=== PATIENT | male | born 1970 | race Caucasian/White ===

== ENCOUNTER 2019-05-06 15:01 | Inpatient (IN) | payer BC ==
[~2019-05-06] VITALS: Ht 182.9 cm; Wt 107.2 kg
[~2019-05-06 15:01] MED LIST: CARA1TAB2 PO; CLAR10TA13 PO; GI COCKTAIL PO; PANT40TA2 PO; PERC7.5T12 PO
[2019-05-06] MEDS ORDERED: ATIV1TAB10 PO (15:21)
[2019-05-06 15:52] LABS: HEMATOCRIT 44.1 % (42.0-52.0); HEMOGLOBIN 15.2 g/dl (13.5-17.5); MEAN CORPUSCULAR HEMOGLOBIN 31.6 pg (27.0-33.0); MEAN CORPUSCULAR HGB CONC 34.5 g/dl (32.0-36.5); MEAN CORPUSCULAR VOLUME 91.7 fl (80.0-96.0); PLATELET COUNT, AUTOMATED 130 10^3/uL (150-450); RED BLOOD COUNT 4.81 10^6/uL (4.30-6.10); WHITE BLOOD COUNT 4.7 10^3/uL (4.0-10.0)
[2019-05-06 16:09] LABS: ATYPICAL LYMPH 1 % (0-5); LYMPHOCYTES 15 % (16-44); METAMYELOCYTES 2 % (0-0); MONOCYTES 1 % (0-5); NEUTROPHILS 67 % (28-66)
[2019-05-06 16:10] LABS: TOXIC VACUOLATION 1+
--- NOTE | 2019-05-06 16:10 | REP ---
Clinical: Chest pain. Comparison: 06/30/2015. Findings: Diffuse bilateral infiltrates (left greater than right) appreciated. Multiple areas have a somewhat rounded nodular mass like appearance. No effusion. No pneumothorax. Cardiac silhouette is normal. Skeletal structures are intact. Impression: Diffuse bilateral infiltrates. Differential diagnosis includes multifocal pneumonia, but underlying mass lesions/metastatic disease cannot be excluded. Consider follow-up to resolution and/or chest CT if necessary. Electronically Signed by Antoine Haile MD 05/06/2019 04:01 P
[2019-05-06 16:11] LABS: PLATELET CLUMPS SMALL AMT; PLATELET ESTIMATE DECREASED (NORMAL)
[2019-05-06 16:30] LABS: ALBUMIN 3.1 GM/DL (3.2-5.2); ALT/SGPT 70 U/L (12-78); BILIRUBIN,DIRECT 0.4 MG/DL (0.0-0.2); BILIRUBIN,TOTAL 0.9 MG/DL (0.2-1.0); BLOOD UREA NITROGEN 11 MG/DL (7-18); CALCIUM LEVEL 8.2 MG/DL (8.5-10.1); CARBON DIOXIDE LEVEL 27 MEQ/L (21-32); CHLORIDE LEVEL 101 MEQ/L (98-107); CK-MB VALUE MASS < 1.0 NG/ML (<3.6); CPK CREATINE PHOSPHOKINASE 81 U/L (39-308); CREATININE FOR GFR 0.86 MG/DL (0.70-1.30); GLOMERULAR FILTRATION RATE > 60.0 (>60); GLUCOSE, FASTING 124 MG/DL (70-100); LIPASE 54 U/L (73-393); MB/CK RELATIVE INDEX 1.23 (< OR =4); NT-PRO BNP 52 PG/ML (<125); SODIUM LEVEL 137 MEQ/L (136-145); THYROID STIMULATING HORMONE 0.602 uIU/ML (0.358-3.740); TOTAL PROTEIN 6.1 GM/DL (6.4-8.2); TROPONIN I < 0.02 NG/ML (< 0.10)
[2019-05-06] MEDS ORDERED: ISOVUE-370 76% 100ML VIAL (Q9967) As Ordered ONE (17:28)
[2019-05-06] MEDS ORDERED: NS 1,000 ML IV ONE ×3 (17:30→20:30)
[2019-05-06] MEDS ORDERED: LevoFLOXacin IV 750 MG in IV 1 EA IV ONE (18:00)
--- NOTE | 2019-05-06 18:01 | REPVR ---
PROCEDURE INFORMATION: Exam: CT Angiography Chest With Contrast Exam date and time: 05/06/2019 5:29 PM Clinical history: 48 years old, male; Shortness of breath TECHNIQUE: Imaging protocol: Computed tomographic angiography of the chest with intravenous contrast. 3D rendering: MIP reconstructed images were created and reviewed. Radiation optimization: All CT scans at this facility use at least one of these dose optimization techniques: automated exposure control; mA and/or kV adjustment per patient size (includes targeted exams where dose is matched to clinical indication); or iterative reconstruction. Contrast material: ISOVUE 370; Contrast volume: 75 ml; Contrast route: IV; COMPARISON: CR PORTABLE CHEST X-RAY 05/06/2019 3:35 PM FINDINGS: Pulmonary arteries: There are no pulmonary emboli. Aorta: There is no aortic dissection or aneurysm. Lungs: Bilateral air space infiltrates demonstrated in the upper and lower lobes. Small calcified granuloma right upper lobe. Pleural space: Minimal left pleural effusion. Heart: Unremarkable. No cardiomegaly. No pericardial effusion. Mediastinum: Diffuse thickening of the wall of the distal esophagus may represent changes secondary to reflux esophagitis. Stomach and bowel: This patient is status post gastric bypass surgery. Lymph nodes: Unremarkable. No enlarged lymph nodes. Bones/joints: Unremarkable. No acute fracture. Soft tissues: Unremarkable. IMPRESSION: 1. Bilateral air space infiltrates demonstrated in the upper and lower lobes. Differential diagnosis includes infection and ARDS. 2. This patient is status post gastric bypass surgery. 3. Minimal left pleural effusion. 4. There is no aortic dissection or aneurysm. 5. There are no pulmonary emboli. Electronically signed by: Go Rees On 05/06/2019 18:00:36 PM
[2019-05-06] MEDS ORDERED: METH1CAP3 PO (18:13)
[2019-05-06] MEDS ORDERED: VITA200021 PO (18:13)
[2019-05-06] MEDS ORDERED: PSEU30TA85 PO (18:13)
[2019-05-06] MEDS ORDERED: LAMO100T PO (18:13)
[2019-05-06] MEDS ORDERED: GUAI400T9 PO (18:13)
[2019-05-06] MEDS ORDERED: REME15TA PO (18:13)
[2019-05-06] MEDS ORDERED: BENZ200C70 PO (18:13)
[2019-05-06] MEDS ORDERED: DULO1CAP6 PO (18:13)
[2019-05-06] MEDS ORDERED: OSEL75CA PO (18:13)
[2019-05-06] MEDS ORDERED: VITMTA PO (18:13)
[2019-05-06] MEDS ORDERED: cefTRIAXone SOD 2 GM in D5W MINI-BAG PLUS 50 ML IV ONE (19:45)
[2019-05-06] MEDS ORDERED: LEVALBUTEROL 1.25 MG/0.5 ML CONCENTRATE NEB INH PRN (20:15)
[2019-05-06] MEDS ORDERED: ENOXAPARIN 40 MG/0.4 ML SYRINGE (J1650) SC ONE (20:30)
[2019-05-06] MEDS ORDERED: BENZONATATE 100 MG CAP PO PRN (20:30)
[2019-05-06] MEDS ORDERED: guaiFENesin 200 MG TAB PO PRN (20:30)
[2019-05-06] MEDS ORDERED: LORazepam 0.5 MG TAB PO PRN (20:30)
[2019-05-06 20:56] LABS: HEMOGLOBIN A1c 5.5 %
[2019-05-06] MEDS ORDERED: DOXYCYCLINE HYCLATE 100 MG in D5W MINI-BAG PLUS 100 ML IV SCH (21:00)
[2019-05-06] MEDS ORDERED: ONDANSETRON 4MG/2ML VIAL (J2405) IV ONE (21:15)
[2019-05-06 21:30] VITALS: BP 158/88
[2019-05-06 21:44] LABS: ABG BASE EXCESS 0.7 (-2.0-2.0); ABG HCO3 24.5 MEQ/L (22.0-26.0); ABG O2 SATURATION 94.7 % (95.0-99.0); ABG PARTIAL PRESSURE CO2 36.5 mmHg (35.0-45.0); ABG PARTIAL PRESSURE O2 67.9 mmHg (75.0-100.0); ABG TOTAL CO2 25.6 MEQ/L (22.0-29.0); ABG pH (ARTERIAL) 7.444 UNITS (7.350-7.450)
[2019-05-06] MEDS ORDERED: ACETAMINOPHEN TAB 650MG DOSE (2X325MG) PO ONE (22:15)
[2019-05-06] MEDS: PANTOPRAZOLE 40MG INJ (PROTONIX) (C9113) IV SCH (22:15)
[2019-05-06] MEDS: MIRTAZAPINE 15 MG TAB PO SCH (22:15)
[2019-05-06] MEDS: NS 1,000 ML IV SCH (23:28)
[2019-05-07] VITALS: BP 140/74
[2019-05-07] MEDS: LEVALBUTEROL 1.25 MG/0.5 ML CONCENTRATE NEB INH SCH ×7 (00:04→23:52)
[2019-05-07] MEDS ORDERED: ACETAMINOPHEN 500 MG TAB PO ONE (02:45)
[2019-05-07] MEDS ORDERED: SODIUM CHLORIDE NASAL 0.65% SPRAY BTL (OCEAN) PRN (02:45)
[2019-05-07 04:00] VITALS: BP 150/80
[2019-05-07 05:23] LABS: HEMATOCRIT 36.7 % (42.0-52.0); MEAN CORPUSCULAR HEMOGLOBIN 31.2 pg (27.0-33.0); MEAN CORPUSCULAR HGB CONC 34.9 g/dl (32.0-36.5); MEAN CORPUSCULAR VOLUME 89.5 fl (80.0-96.0); PLATELET COUNT, AUTOMATED 117 10^3/uL (150-450)
[2019-05-07 05:26] LABS: HEMOGLOBIN 12.8 g/dl (13.5-17.5)
[2019-05-07 05:44] LABS: BLOOD UREA NITROGEN 9 MG/DL (7-18); CALCIUM LEVEL 7.7 MG/DL (8.5-10.1); CARBON DIOXIDE LEVEL 22 MEQ/L (21-32); CHLORIDE LEVEL 106 MEQ/L (98-107); CHOLESTEROL LEVEL 103 MG/DL (<200); CHOLESTEROL RISK RATIO 2.641 (<5); CREATININE FOR GFR 0.63 MG/DL (0.70-1.30); GLOMERULAR FILTRATION RATE > 60.0 (>60); GLUCOSE, FASTING 107 MG/DL (70-100); HDL CHOLESTEROL 39 MG/DL (>40); LDL CHOLESTEROL 42 MG/DL (<100); MAGNESIUM LEVEL 1.4 MG/DL (1.8-2.4); NON-HDL-C 64 MG/DL; POTASSIUM SERUM 3.4 MEQ/L (3.5-5.1); SODIUM LEVEL 137 MEQ/L (136-145); TRIGLYCERIDES LEVEL 111 MG/DL (<150)
[2019-05-07] MEDS: ONDANSETRON 4MG/2ML VIAL (J2405) IV SCH ×5 (05:50→23:50)
--- NOTE | 2019-05-07 07:09 | HPE ---
DATE OF ADMISSION: 05/06/2019 PRIMARY CARE PHYSICIAN: Dr. Espinoza in [place] DIGITAL FIELD SERVICE TECHNICIAN: Opal Davila MD CHIEF COMPLAINT: Shortness of breath, cough, and fever. HISTORY OF PRESENTING ILLNESS: This is a 48-year-old male who presented to the emergency room with acute onset of fever, chills, shortness of breath, and cough productive of yellow-green sputum which started on Wednesday with a temperature of 104.1. On Wednesday, patient was shopping at [employer] with his daughter, did not feel well. Went to urgent care on , where he was diagnosed with the flu and was given Tamiflu. Since then, he has been having a fever which started on Wednesday, 104.1 temperature, with productive cough, yellow-green sputum. Took some Tessalon Perles without improvement, with worsening shortness of breath. Despite Tylenol 1 gram every 6 hours and ibuprofen, which he was not supposed to take due to history of gastric bypass surgery, patient developed headache which was frontal without radiation. No photophobia or neck rigidity. He had some nausea without vomiting. No diarrhea. Nothing helped with his headache. He then started to take hydrocodone which he had from previous surgery which had no improvement as well. 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 He did have one episode of diarrhea today. He has had decrease in appetite without documented weight loss. Denies dysphagia or odynophagia. Otherwise, denies any recent travel. Denies history of asthma, chronic obstructive pulmonary disease (COPD), was never a smoker. He also denies any unusual pets or birds at home. CT chest showed bilateral infiltrates, possible acute respiratory distress syndrome (ARDS). Patient does admit to having exposure to his children who have had upper respiratory infection at home as well as his for the past week, none of whom have been diagnosed with pneumonia or influenza. Hospitalist was called to admit. PAST MEDICAL HISTORY: Esophageal stricture status post dilation, achalasia, seasonal allergies, gastroesophageal reflux disease, anxiety, depression. PAST SURGICAL HISTORY: Gastric bypass, EGD, and per-oral endoscopic myotomy (POEM) at [facility] 2013. ALLERGIES: No known drug allergies. HOME MEDICATIONS: - Tessalon Perles 200 mg three times a day - duloxetine 60 mg daily - guaifenesin 400 three times a day as needed for congestion - lamotrigine 200 mg daily - Ativan 0.5 twice a day as needed for anxiety - Remeron 15 mg nightly - multivitamin one tablet daily - oseltamivir 75 mg twice a day - Sudafed 60 mg every 6 hours as needed for congestion - vitamin D3 2000 units daily - methylphenidate 20 mg twice a day SOCIAL HISTORY: Patient lives at home with his and three children; two daughters and one son. 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 Patient denied any history of smoking. Occasionally drinks alcohol. Avoids carbonated beverages due to his of gastric bypass. Mother age 74 with pancreatic cancer and had a lung mass at the time. Father had coronary artery disease (CAD), still alive at age 75, also with diabetes. Patient has a younger sister with autism. Brother is alive and well and had hip replacement due to football injury. Older sister with fibromyalgia and glaucoma. REVIEW OF SYSTEMS: Per history of present illness (HPI), 12-point system otherwise negative aside from positive findings on history of presenting illness. PHYSICAL EXAMINATION: Temperature 97.2, pulse 121, respiratory rate 16, blood pressure 147/88, 91% on room air. Generally: Patient is awake, alert, oriented times three, answering questions appropriately. Anicteric sclerae. No jaundice. Pupils round and reactive to light and accommodation. Extraocular muscles are intact. Normocephalic, atraumatic. Patient does not have any pallor. No icterus. No jaundice. No use of respiratory accessory muscles. Able to complete his sentences without conversations dyspnea. No tripod positioning or pursing of the lips. Does not appear to be cyanotic. Tongue is midline. Face is symmetric. Trachea is midline. No stridor or neck exam. No drooling. Lungs: Diminished bilateral crackles and decreased breath sounds, faint wheezing. Heart: S1, S2, sinus tachycardia. No murmurs, rubs, or gallops. Abdomen is obese, soft, nontender, nondistended, positive bowel sounds times four quadrants. No hepatosplenomegaly. No abdominal bruits. No costovertebral angle (CVA) tenderness. Extremities: No cyanosis, clubbing, or pitting edema. LABORATORY DATA: White count 4.7, hemoglobin 15, hematocrit 44, platelet count 130, 67% neutrophils, 14 bands, sodium 137, potassium 4, chloride 101, bicarbonate 27, BUN 11, creatinine 0.86, glucose 124, calcium 8.2, total bilirubin 0.9, direct bilirubin 0.4, AST 56, ALT 70, alkaline phosphatase 69, total CK 81, MB fraction less than 1, troponin less than 0.02, BNP 52, total protein 6.1, albumin 3.1, lipase 54, TSH 0.602, d-dimer 3745.02. Microbiology: Mycoplasma pneumonia. Two sets of blood cultures are negative. CT chest 05/06/2019 shows bilateral air space infiltrates demonstrated in the upper and lower lobes. Differential includes infection, ARDS. Status post gastric bypass surgery, minimal left pleural effusion. There is no aortic dissection or aneurysm. There are no pulmonary emboli. ASSESSMENT AND PLAN: This is a 48-year-old male with history of gastric bypass surgery, achalasia, esophageal strictures, seasonal allergies, reflux disease, status post per-oral endoscopic myotomy (POEM) at [facility] in 2013, presents to the emergency room with fever since Wednesday, found to have mycoplasma pneumonia and bilateral infiltrates on CT chest. Patient will be admitted as an inpatient for two midnights for the following issues: 1. Atypical pneumonia with mycoplasma pneumonia, community-acquired. Received IV Levaquin 750 mg in the emergency room (ER) which we will continue. Await sputum culture and continue on ceftriaxone to cover for Streptococcus pneumoniae and Haemophilus influenzae as well. If negative sputum culture, will continue only on Levaquin. Patient is currently not hypoxic, saturating 91% on room air. Will continue to give nebulizer treatments due to some wheezing on examination and monitor for worsening respiratory status. Droplet precautions and isolation precautions. 2. History of gastric bypass surgery, esophageal stricture status post dilation status post per-oral endoscopic myotomy (POEM) at [facility] in 2013. Patient may be resumed on proton pump inhibitor (PPI). 3. Anxiety/depression. Resume home medication. 4. Deep venous thrombosis (DVT) prophylaxis with compression stockings. Early ambulation. MTDD
[2019-05-07 08:00] VITALS: BP 157/74
[2019-05-07] MEDS: PANTOPRAZOLE 40MG INJ (PROTONIX) (C9113) IV SCH ×2 (08:12→20:47)
[2019-05-07] MEDS: MAG SULF 1GM/100ML (MAG RUN) 1 GM in IV 1 EA IV SCH ×2 (08:12→10:22)
[2019-05-07] MEDS: cefTRIAXone SOD 2 GM in D5W MINI-BAG PLUS 50 ML IV SCH (08:12)
[2019-05-07] MEDS: lamoTRIgine 100MG TAB PO SCH (08:13)
[2019-05-07] MEDS: DULoxetine 30 MG CAP (CYMBALTA) PO SCH (08:13)
[2019-05-07] MEDS: SODIUM CHLORIDE 0.9% NASAL GEL 15GM (AYR) SCH ×4 (08:13→20:48)
[2019-05-07] MEDS: MULTIVITAMINS/MINERALS THERAP 1 TAB PO SCH (08:13)
[2019-05-07] MEDS ORDERED: INFLUENZA QUADRIVALENT PF VACCINE 0.5ML SYRINGE (90686) IM ONE (09:00)
--- NOTE | 2019-05-07 09:11 | IPNPDOC ---
Date Seen The patient was seen on 05/07/19. Progress Note SUBJECTIVE: Patient tells me that he continues to have body aches he feels that he did have quite high fever yesterday evening he tells me that his back shoulders and knees are all sore. otherwise patient denies chest pain, shortness breath, nausea, vomiting, fevers, chills OBJECTIVE PHYSICAL EXAMINATION: VITAL SIGNS: Please see below. GENERAL: Pleasant malaise man sitting up in bed awake alert oriented speaking in complete sentences no acute distress does appear fatigued HEENT: Moist mucous membranes no elevation in CVP CARDIOVASCULAR: S1 S2 regular no additional heart sounds appreciated. No audible rub RESPIRATORY: Clear to auscultation bilaterally. Mild diffuse rhonchi with mild expiratory wheeze ABDOMINAL: Bowel sounds present abdomen soft and nontender EXTREMITIES: No clubbing cyanosis or edema NEUROLOGICAL: Spontaneously moves all 4 extremities cranial 2 through 12 grossly intact no gross focal deficits appreciated PSYCHOLOGICAL: Appropriate LABORATORY DATA, MICROBIOLOGY: Please see below. IMAGING STUDIES: CT angiography of the chest:1. Bilateral air space infiltrates demonstrated in the upper and lower lobes. Differential diagnosis includes infection and ARDS. 2. This patient is status post gastric bypass surgery. 3. Minimal left pleural effusion. 4. There is no aortic dissection or aneurysm. 5. There are no pulmonary emboli. ASSESSMENT AND PLAN: This is a 48-year-old man with mycoplasma pneumonia. PROBLEMS: 1 mycoplasma pneumonia: Initially diagnosed with influenza without a positive nasal swab at urgent care and had been on Tamiflu without improvement. He had progressive worsening of his symptoms until he presented to the emergency room he has now been appropriately diagnosed with mycoplasma and is on levofloxacin. I'm unsure of yet benefit ceftriaxone which is currently receiving as well. But as per Dr. Deras's note will continue with her cultures remain negative consider discontinuing within 24 hours. I suspect that within the next 24-48 hours his symptomatology will improving likely medically stable for discharge by Wednesday given resolution of his fevers. His daughter who is 14 months is ill as well currently admitted on her pediatric floor the aware of his diagnosis and she is being treated appropriately for the same condition. The patient did request that I sure of this. Continue with Xopenex Tessalon Perles Robitussin pseudoephedrine. For now continue with normal saline 2 mood disorder: Continue with duloxetine Lamictal Remeron and Ativan. 3 history of gastric bypass surgery: Continue with multivitamin he is on a PPI at this time. 4 anemia: Likely secondary to dilutional drop. 5 thrombocytopenia: Possibly secondary to his infection and dilutional drop continue to monitor daily consider holding anticoagulation platelets below 100 6 electrolytes abnormalities: I'll replete his magnesium IV of potassium by mouth DVT prophylaxis: Lovenox DISPOSITION: I suspect, Wednesday. This note was generated in part or whole with a voice recognition software. Voice recognition is usually quite accurate but often errors do occur. I apologize for any typographical errors that were not detected and corrected. VS, I&O, 24H, Fishbone Vital Signs/I&O Vital Signs Date Time Temp Pulse Resp B/P (MAP) Pulse Ox O2 Delivery O2 Flow Rate FiO2 05/07/19 08:00 99.7 111 18 157/74 (101) 94 Room Air I&O- Last 24 Hours up to 6 AM 05/07/19 06:00 Intake Total 4470 ml Output Total 975 ml Balance 3495 ml Laboratory Data 24H LABS Laboratory Tests 2 05/06/19 15:32: Nucleated Red Blood Cells % (auto) 0.0, Neutrophils 67H, Band Neutrophils 14H, Lymphocytes (Manual) 15L, Monocytes (Manual) 1, Metamyelocytes 2H, Atypical Lymphocytes 1, Toxic Vacuolation 1+, Platelet Estimate DECREASED, Clumped Platelets SMALL AMT, D-Dimer, Quantitative 3745.02H, Anion Gap 9, Glomerular Filtration Rate > 60.0, Estimated Mean Plasma Glucose 111H, Hemoglobin A1c 5.5, Calcium Level 8.2L, Total Bilirubin 0.9, Direct Bilirubin 0.4H, Aspartate Amino Transf (AST/SGOT) 56H, Alanine Aminotransferase (ALT/SGPT) 70, Alkaline Phosphatase 69, Total Creatine Kinase 81, Creatine Kinase MB < 1.0, Creatine Kinase MB Relative Index 1.23, Troponin I < 0.02, [id number]-Type Natriuretic Peptide 52, Total Protein 6.1L, Albumin 3.1L, Albumin/Globulin Ratio 1.03, Lipase 54L, Thyroid Stimulating Hormone (TSH) 0.602 05/06/19 21:31: Blood Gas Bicarbonate Standard 25.0, Arterial Blood pH 7.444, Arterial Blood Partial Pressure CO2 36.5, Arterial Blood Partial Pressure O2 67.9L, Arterial Blood Total CO2 25.6, Arterial Blood HCO3 24.5, Arterial Blood Base Excess 0.7, Arterial Blood Oxygen Saturation 94.7L 05/07/19 05:10: Nucleated Red Blood Cells % (auto) 0.0, Anion Gap 9, Glomerular Filtration Rate > 60.0, Calcium Level 7.7L, Lactic Acid Level 1.2, Magnesium Level 1.4L, Triglycerides Level 111, Total Cholesterol 103, LDL Cholesterol 42, Non-HDL Cholesterol (LDL + VLDL) 64, Total HDL Cholesterol 39L, Cholesterol/HDL Ratio 2.641 CBC/BMP Laboratory Tests 05/06/19 15:32 05/07/19 05:10 Microbiology Microbiology 05/06/19 Blood Culture, Received Pending 05/06/19 Respiratory Virus Panel (PCR) ([facility]) - Final, Complete Mycoplasma Pneumoniae 05/06/19 Blood Culture, Received Pending NICKIE SAUL MD May 07, 2019 09:11
[2019-05-07] MEDS ORDERED: POTASSIUM CHLORIDE 10 MEQ SR TABLET PO ONE (10:00)
[2019-05-07] MEDS: PSEUDOEPHEDRINE 30 MG TAB PO PRN ×2 (10:21→16:06)
[2019-05-07] MEDS: NS 1,000 ML IV SCH (10:22)
[2019-05-07] MEDS: LevoFLOXacin IV 750 MG in IV 1 EA IV SCH (10:23)
--- NOTE | 2019-05-07 11:54 | ECGEPIP ---
[facility] - ED Test Date: 2019-05-06 Pat Name: ANANDA JUNG Department: Room: - Gender: Male Pediatric Assistant: zoe chavez : 1970 Requested By: YMRIAM Castro Order Number: [id number] Reading MD: Loulou Lagos Measurements Intervals [place] Rate: 113 P: 59 GA: 140 QRS: 80 QRSD: 104 T: 32 QT: 306 QTc: 420 Interpretive Statements SINUS TACHYCARDIA POSSIBLE LEFT ATRIAL ENLARGEMENT INCOMPLETE RIGHT BUNDLE BRANCH BLOCK ABNORMAL RHYTHM ECG NO PRIOR Electronically Signed on 05-07-2019 11:54:08 EST by Loulou Lagos
[2019-05-07 12:00] VITALS: BP 159/90
[2019-05-07] MEDS: ACETAMINOPHEN TAB 650MG DOSE (2X325MG) PO PRN (16:06)
[2019-05-07 20:00] VITALS: BP 136/70
[2019-05-07] MEDS: MIRTAZAPINE 15 MG TAB PO SCH (20:47)
[2019-05-07] MEDS: ENOXAPARIN 40 MG/0.4 ML SYRINGE (J1650) SC SCH (20:48)
[2019-05-08] VITALS (8 sets, daily range): BP systolic 126–190; BP diastolic 70–110
[2019-05-08] MEDS: PSEUDOEPHEDRINE 30 MG TAB PO PRN (01:55)
[2019-05-08] MEDS: ACETAMINOPHEN TAB 650MG DOSE (2X325MG) PO PRN ×2 (01:55→23:53)
[2019-05-08] MEDS: LEVALBUTEROL 1.25 MG/0.5 ML CONCENTRATE NEB INH SCH ×5 (04:06→19:33)
[2019-05-08 05:35] LABS: HEMATOCRIT 36.8 % (42.0-52.0); HEMOGLOBIN 12.6 g/dl (13.5-17.5); MEAN CORPUSCULAR HEMOGLOBIN 30.9 pg (27.0-33.0); MEAN CORPUSCULAR HGB CONC 34.2 g/dl (32.0-36.5); MEAN CORPUSCULAR VOLUME 90.2 fl (80.0-96.0); PLATELET COUNT, AUTOMATED 116 10^3/uL (150-450); RED BLOOD COUNT 4.08 10^6/uL (4.30-6.10); WHITE BLOOD COUNT 3.8 10^3/uL (4.0-10.0)
[2019-05-08] MEDS: ONDANSETRON 4MG/2ML VIAL (J2405) IV SCH ×4 (05:43→23:53)
[2019-05-08 05:59] LABS: BLOOD UREA NITROGEN 6 MG/DL (7-18); CALCIUM LEVEL 8.4 MG/DL (8.5-10.1); CARBON DIOXIDE LEVEL 28 MEQ/L (21-32); CHLORIDE LEVEL 104 MEQ/L (98-107); CREATININE FOR GFR 0.66 MG/DL (0.70-1.30); GLOMERULAR FILTRATION RATE > 60.0 (>60); GLUCOSE, FASTING 106 MG/DL (70-100); POTASSIUM SERUM 3.2 MEQ/L (3.5-5.1); SODIUM LEVEL 139 MEQ/L (136-145)
[2019-05-08] MEDS ORDERED: POTASSIUM CHLORIDE 10 MEQ SR TABLET PO ONE ×2 (08:00→13:15)
[2019-05-08] MEDS: PANTOPRAZOLE 40MG INJ (PROTONIX) (C9113) IV SCH ×2 (09:49→20:56)
[2019-05-08] MEDS: cefTRIAXone SOD 2 GM in D5W MINI-BAG PLUS 50 ML IV SCH (09:49)
[2019-05-08] MEDS: lamoTRIgine 100MG TAB PO SCH (09:50)
[2019-05-08] MEDS: MULTIVITAMINS/MINERALS THERAP 1 TAB PO SCH (09:50)
[2019-05-08] MEDS: DULoxetine 30 MG CAP (CYMBALTA) PO SCH (09:51)
[2019-05-08] MEDS: SODIUM CHLORIDE 0.9% NASAL GEL 15GM (AYR) SCH ×4 (09:52→20:57)
[2019-05-08] MEDS: LevoFLOXacin IV 750 MG in IV 1 EA IV SCH (10:43)
--- NOTE | 2019-05-08 13:31 | IPNPDOC ---
Text Note Date of Service The patient was seen on 05/08/19. NOTE SUBJECTIVE: Patient was examined at bedside today. He had no acute complaints. He denies any shortness of breath. Sinus cough. Denies any chest pain. He had a MAXIMUM TEMPERATURE of 102.1 overnight. Continues to be on Rocephin and Levaquin. OBJECTIVE: PHYSICAL EXAMINATION: GENERAL APPEARANCE: Alert no acute distress. SKIN: Warm, well perfused. LUNGS: Diffuse rhonchi, with very mild expiratory raise her throughout lung ibrahim HEART: Normal S1, S2. No murmurs, no rubs, no gallops ABDOMEN: Soft. No masses. Bowel sounds are present. Obese abdomen EXTREMITIES: Moves all extremities equally. No gross deformities. PULSES: 2+ upper and lower extremity . LABORATORY DATA: Please see below. IMAGING: CT angiography of the chest:1. Bilateral air space infiltrates demonstrated in the upper and lower lobes. Differential diagnosis includes infection and ARDS. 2. This patient is status post gastric bypass surgery. 3. Minimal left pleural effusion. 4. There is no aortic dissection or aneurysm. 5. There are no pulmonary emboli. ASSEMENT AND PLAN: 1 mycoplasma pneumonia: -continue Levaquin, discontinue Ceftriaxone -Supportive care with Jo-[facility] Akers 2 mood disorder: Continue with duloxetine Lamictal Remeron and Ativan. 3 history of gastric bypass surgery: Continue with multivitamin he is on a PPI at this time. DVT prophylaxis: Allison Attending addendum: I personally saw and examined the patient. I discussed the care and management of this patient with Resident and agree with the plan above. Additional information below: - Admitted for multifocal pneumonia secondary to Mycoplasma pneumonia, on levaquin, clinically stable, possible discharge tomorrow. VS,Fishbone, I+O VS, Fishbone, I+O Laboratory Tests 05/08/19 05:05 Vital Signs Date Time Temp Pulse Resp B/P (MAP) Pulse Ox O2 Delivery O2 Flow Rate FiO2 05/08/19 08:00 97.3 98 18 150/96 (114) 98 Room Air I&O- Last 24 Hours up to 6 AM 05/08/19 05:59 Intake Total 1880 ml Output Total 400 ml Balance 1480 ml GME ATTESTATION GME ATTESTATION My faculty preceptor for this patient encounter was physically present during the encounter and was fully available. All aspects of the patient interview, examination, medical decision making process, and medical care plan development were reviewed and approved by the faculty preceptor. The faculty preceptor is aw are and concurs with the plan as stated in the body of this note and will attest to such by his/her cosignature. MATHEUS HICKS DO May 08, 2019 10:40 ALBA MINOR MD May 08, 2019 17:05
[2019-05-08] MEDS: ENOXAPARIN 40 MG/0.4 ML SYRINGE (J1650) SC SCH (20:56)
[2019-05-08] MEDS: MIRTAZAPINE 15 MG TAB PO SCH (20:57)
[2019-05-09] VITALS: BP 130/74
[2019-05-09] MEDS: LEVALBUTEROL 1.25 MG/0.5 ML CONCENTRATE NEB INH SCH ×4 (01:05→11:28)
[2019-05-09 04:00] VITALS: BP 116/68
[2019-05-09 06:15] LABS: HEMATOCRIT 33.3 % (42.0-52.0); HEMOGLOBIN 11.6 g/dl (13.5-17.5); MEAN CORPUSCULAR HEMOGLOBIN 31.1 pg (27.0-33.0); MEAN CORPUSCULAR HGB CONC 34.8 g/dl (32.0-36.5); MEAN CORPUSCULAR VOLUME 89.3 fl (80.0-96.0); PLATELET COUNT, AUTOMATED 107 10^3/uL (150-450); RED BLOOD COUNT 3.73 10^6/uL (4.30-6.10); WHITE BLOOD COUNT 2.5 10^3/uL (4.0-10.0)
[2019-05-09] MEDS: ONDANSETRON 4MG/2ML VIAL (J2405) IV SCH ×2 (06:19→12:00)
[2019-05-09] MEDS: ACETAMINOPHEN TAB 650MG DOSE (2X325MG) PO PRN (06:20)
[2019-05-09 06:45] LABS: BLOOD UREA NITROGEN 9 MG/DL (7-18); CALCIUM LEVEL 8.4 MG/DL (8.5-10.1); CARBON DIOXIDE LEVEL 29 MEQ/L (21-32); CHLORIDE LEVEL 108 MEQ/L (98-107); CREATININE FOR GFR 0.65 MG/DL (0.70-1.30); GLOMERULAR FILTRATION RATE > 60.0 (>60); GLUCOSE, FASTING 89 MG/DL (70-100); POTASSIUM SERUM 3.5 MEQ/L (3.5-5.1); SODIUM LEVEL 143 MEQ/L (136-145)
[2019-05-09 08:00] VITALS: BP 140/89
[2019-05-09] MEDS: MULTIVITAMINS/MINERALS THERAP 1 TAB PO SCH (09:13)
[2019-05-09] MEDS: lamoTRIgine 100MG TAB PO SCH (09:13)
[2019-05-09] MEDS: DULoxetine 30 MG CAP (CYMBALTA) PO SCH (09:13)
[2019-05-09] MEDS: PANTOPRAZOLE 40MG INJ (PROTONIX) (C9113) IV SCH (09:14)
[2019-05-09] MEDS: SODIUM CHLORIDE 0.9% NASAL GEL 15GM (AYR) SCH (09:14)
[2019-05-09] MEDS ORDERED: ALBU83IN INH (09:46)
[2019-05-09] MEDS ORDERED: LEVA750T7 PO (09:51)
--- NOTE | 2019-05-09 10:18 | DS.PDOC ---
Discharge Summary General Date of Admission May 06, 2019 at 19:27 Date of Discharge 05/09/19 Attending Physician: DELL DAUGHERTY MD Discharge Summary Primary care physician. Dr. Espinoza in [place] PROCEDURES PERFORMED DURING STAY: None ADMITTING DIAGNOSES: 1. Pneumonia DISCHARGE DIAGNOSES: 1. Mycoplasma pneumonia 2. Leukopenia 3. DVT prophylaxis COMPLICATIONS/CHIEF COMPLAINT: Shortness of breath, cough, fever HISTORY OF PRESENT ILLNESS/HOSPITAL COURSE: Patient is a 48-year-old gentleman who presented to the emergency room with fever, chills, shortness of breath, cough, his cough was positive for yellow-green productive sputum. Prior to his presentation to the ER patient went to urgent care on and was diagnosed with the flu and given Tamiflu. His symptoms did not improve. On presentation Initial CT showed bilateral infiltrates in the upper and lower lobe, respiratory panel was positive for mycoplasma pneumoniae. He was admitted for pneumonia, secondary to exposure to mycoplasma pneumonia. He was started on Levaquin and ceftriaxone. During stay patient had fevers that was responsive to Tylenol. On day 2 of hospitalization, his ceftriaxone was discontinued. He was afebrile for greater than 24 hours prior to discharge. During hospital stay. Patient had a do wn trending WBC. Patient was cleared for discharge with referral to pulmonary. Has been advised to have follow up with CBC in 3 days. He also follow-up with his PCP / Pulmonology within 7 days. PAST MEDICAL HISTORY: Esophageal stricture status post dilation, achalasia, seasonal allergies, gastroesophageal reflux disease, anxiety, depression DISCHARGE MEDICATIONS: Please see below. ALLERGIES: Please see below. PHYSICAL EXAMINATION ON DISCHARGE: VITAL SIGNS: Please see below. SKIN: Warm, well perfused. LUNGS: Coarse rhonchi, no wheezing, no crackles HEART: Normal S1, S2. No murmurs, no rubs, no gallops ABDOMEN: Soft. No masses. Bowel sounds are present. Obese abdomen EXTREMITIES: Moves all extremities equally. No gross deformities. PULSES: 2+ upper and lower extremity . LABORATORY DATA: Please see below. IMAGING: Chest x-ray Impression: Diffuse bilateral infiltrates. Differential diagnosis includes multifocal pneumonia, but underlying mass lesions/metastatic disease cannot be excluded. Consider follow-up to resolution and/or chest CT if necessary Chest CT IMPRESSION: 1. Bilateral air space infiltrates demonstrated in the upper and lower lobes. Differential diagnosis includes infection and ARDS. 2. This patient is status post gastric bypass surgery. 3. Minimal left pleural effusion. 4. There is no aortic dissection or aneurysm. 5. There are no pulmonary emboli. PROGNOSIS: Stable, ACTIVITY: As tolerated DIET: As tolerated DISCHARGE PLAN: Patient will be discharged home, with plans to follow-up with PCP, also referral to pulmonary, due to patient's prior toxin exposure at 911, and prior history of cigarette smoking exposure. Due to, DISPOSITION: Stable DISCHARGE INSTRUCTIONS: 1. Complete antibiotics 2. Follow-up with referral 3. Remain compliant with treatment plan and medications 4. Return to the ER if you experience any problems ITEMS TO FOLLOWUP ON ON OUTPATIENT: 1. Antibiotic completion 2. Pulmonary referral 3. Leukopenia DISCHARGE CONDITION: Stable TIME SPENT ON DISCHARGE: 35 minutes. Vital Signs/I&Os Vital Signs Date Time Temp Pulse Resp B/P (MAP) Pulse Ox O2 Delivery O2 Flow Rate FiO2 05/09/19 08:00 97.0 83 20 140/89 (106) 97 Room Air I&O- Last 24 Hours up to 6 AM 05/09/19 05:59 Intake Total 1650 ml Output Total 2030 ml Balance -380 ml Laboratory Data Labs 24H Laboratory Tests 2 05/08/19 10:00: 05/08/19 13:34: Magnesium Level 1.9 05/09/19 05:44: Nucleated Red Blood Cells % (auto) 0.0, Anion Gap 6L, Glomerular Filtration Rate > 60.0, Calcium Level 8.4L CBC/BMP Laboratory Tests 05/09/19 05:44 Microbiology Microbiology 05/08/19 Gram Stain - Final, Resulted 05/08/19 Sputum Culture, Resulted Pending 05/06/19 Blood Culture - Preliminary, Resulted No Growth after 48 hours. All Specime... 05/06/19 Respiratory Virus Panel (PCR) ([facility]) - Final, Complete Mycoplasma Pneumoniae 05/06/19 Blood Culture - Preliminary, Resulted No Growth after 48 hours. All Specime... Discharge Medications Scheduled Cholecalciferol (Vitamin D3) (Vitamin D3) 2,000 Unit Capsule, 2,000 UNIT PO DAILY, (Reported) Duloxetine Hcl (Duloxetine HCl) 60 Mg Capsule.dr, 60 MG PO DAILY, (Reported) Lamotrigine (Lamotrigine) 100 Mg Tablet, 200 MG PO DAILY, (Reported) Levofloxacin (Levaquin) 750 Mg Tablet, 750 MG PO DAILY Methylphenidate HCl (Methylphenidate ER (LA)) 20 Mg Cpbp.50.50, 20 MG PO BID, (Reported) TAKES AM/1400 Mirtazapine (Remeron) 15 Mg Tablet, 15 MG PO QHS, (Reported) Multivitamins (Thera M Plus Tablet) 1 Each Tablet, 1 TAB PO DAILY, (Reported) Oseltamivir Phosphate (Tamiflu) 75 Mg Capsule, 75 MG PO BID, (Reported) FOR 5 DAYS FILLED 05/04 Scheduled PRN Albuterol Sulf (Albuterol Sulfate) 2.5 Mg/3 Ml Vial.neb, 2.5 MG INH DAILY PRN for SHORTNESS OF BREATH Benzonatate (Benzonatate) 200 Mg Capsule, 200 MG PO TID PRN for COUGH, (Reported) MDD 3 Guaifenesin (Guaifenesin) 400 Mg Tablet, 400 MG PO TID PRN for CONGESTION, (Reported) Lorazepam (Ativan) 0.5 Mg Tablet, 0.5 MG PO BID PRN for ANXIETY, (Reported) Pseudoephedrine HCl (Sudafed) 30 Mg Tablet, 60 MG PO Q6H PRN for CONGESTION, (Reported) Allergies Coded Allergies: No Known Allergies (Unverified , 04/23/13) GME ATTESTATION GME ATTESTATION My faculty preceptor for this patient encounter was physically present during the encounter and was fully available. All aspects of the patient interview, examination, medical decision making process, and medical care plan development were reviewed and approved by the faculty preceptor. The faculty preceptor is aware and concurs with the plan as stated in the body of this note and will attest to such by his/her cosignature. ATTENDING NOTE I, Trina Daugherty, have independently examined this patient and performed my own physical exam, as well as reviewed the documentation and edited where necessary. I have discussed in detail with the resident / student the findings and plan of treatment as documented by the resident / student and edited their note. I agree with their findings and treatment plan and have edited their documentation. I will continue to follow the patient during this hospital stay. Time spent on discharge 35 minutes MATHEUS HICKS DO May 09, 2019 10:18 TRINA DAUGHERTY MD May 09, 2019 14:38
[2019-05-09] MEDS: LevoFLOXacin IV 750 MG in IV 1 EA IV SCH (10:40)
[2019-05-09 12:00] VITALS: BP 129/79
[2019-05-10 14:18] LABS: BODY FLUID CULTURE Not Indicated (.); LEGIONELLA ANTIGEN URINE Negative (Negative); ORGANISM ID Not indicated. (.); SPECIMEN SOURCE Urine (.); URINE STREP PNEUMONIAE ANTIGEN Negative (Negative)
[2019-05-10] MEDS ORDERED: MINIMIS6 XX (14:27)
[2019-05-10] MEDS ORDERED: ALBU83IN INH (14:27)
== END 2019-05-09 13:35 | disposition home or self-care (01) | DRG 139 ==
LOC: M ED 15:01 → M ED INP 19:27 → M PCU 21:23
PROVIDERS: ADMIT General Practice; ATTEND Internal Medicine
DX: J15.7 Pneumonia due to Mycoplasma pneumoniae (principal); D69.6 Thrombocytopenia, unspecified; D72.819 Decreased white blood cell count, unspecified; K21.9 Gastro-esophageal reflux disease without esophagitis; F41.9 Anxiety disorder, unspecified; F32.9 Major depressive disorder, single episode, unspecified; Z79.899 Other long term (current) drug therapy; D64.9 Anemia, unspecified

== ENCOUNTER → 2020-05-06 | Outpatient (CLI) | payer BC ==
[~2020-05-06] MED LIST changes: +ALBU83IN INH; +ATIV1TAB10 PO; +BENZ200C70 PO; +DULO1CAP6 PO; +GUAI400T9 PO; +LAMO100T3 PO; +LEVA750T7 PO; +METH1CAP3 PO; +MINIMIS6 XX; +OSEL75CA PO; +PSEU30TA85 PO; +REME15TA PO; +VITA200021 PO; +VITMTA PO
== END ==
LOC: M LABSMTC 12:12
PROVIDERS: ATTEND Family Medicine
DX: Z20.828 Contact with and (suspected) exposure to other viral communicable diseases (principal)

== ENCOUNTER → 2022-05-05 | Outpatient (CLI) | payer OTHER ==
[~2022-05-05] MED LIST changes: +ALBU2.5V10 INH; -ALBU83IN INH; +E-Z-GAS II EFFERVESCENT PACKET (SODIUM BICARB./CITRIC ACID/SIMETHICONE) As Ordered ONE; +E-Z-HD 98% w/w 340GM SUSP BTL As Ordered ONE; +E-Z-PAQUE 96% w/w SUSP 176GM BTL As Ordered ONE; +MIRT-62 PO; -PSEU30TA85 PO; +PSEU30TA86 PO; -REME15TA PO
== END ==
LOC: M RAD 08:37
PROVIDERS: ATTEND Internal Medicine Gastroenterology
DX: K22.0 Achalasia of cardia (principal); R13.10 Dysphagia, unspecified

== ENCOUNTER → 2023-01-29 | Outpatient (CLI) | payer OTHER ==
[~2023-01-29] MED LIST changes: +AMPH10TA PO; +BARI1CAP PO; +COLA100C5 PO; +HYDR100C PO; +MIRA1POW3 PO; +OMEP40CA4 PO; +VIT B COMPLEX PO; +VITACAP8 PO
== END ==
LOC: M RAD 09:03
PROVIDERS: ATTEND Internal Medicine Gastroenterology
DX: K92.1 Melena (principal); K92.2 Gastrointestinal hemorrhage, unspecified

== ENCOUNTER → 2025-03-27 | Outpatient (CLI) | payer OTHER ==
[~2025-03-27] MED LIST changes: +ADDE20TA PO; -E-Z-GAS II EFFERVESCENT PACKET (SODIUM BICARB./CITRIC ACID/SIMETHICONE) As Ordered ONE; -E-Z-HD 98% w/w 340GM SUSP BTL As Ordered ONE; -E-Z-PAQUE 96% w/w SUSP 176GM BTL As Ordered ONE; -MIRA1POW3 PO; +MIRA33506 PO; -MIRT-62 PO; +MIRT-88 PO; +OMEP40CA5 PO; -PSEU30TA86 PO; +PSEU30TA87 PO; +RIME75TA PO; +TOPI-21 PO; +TRAZ-252 PO
== END ==
LOC: M EKG 13:37
PROVIDERS: ATTEND Student in an Organized Health Care Education/Training Program
DX: R55 Syncope and collapse (principal)